=== PATIENT | female | born 1955 | race Caucasian/White ===

== ENCOUNTER 2023-11-06 08:19 | Emergency (ER) | payer MEDICARE, OTHER, SELFPAY ==
[2023-11-06 08:22] VITALS: BP 110/63
--- NOTE | 2023-11-06 09:11 | ED.GENMED ---
History of Present Illness
General
Chief Complaint: Change in Mental Status
Source: patient
Exam Limitations: none
Time Seen by Provider: 11/06/23 08:48
Nursing documentation reviewed up to this point in time: agreed with
Travel History
Have you had any contact with someone who has COVID-19?: No
Do you have any symptoms of coronavirus? Fever > 100 degrees, chills, cough, shortness of breath, sore throat, loss of taste or smell, muscle aches, or headache?: No
History of Present Illness
History of Present Illness:
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 Patient was
seen by her primary care physician 2 days ago and has been started on ciprofloxacin for urinary tract infection, without improvement symptoms. Denies fever or chills. Denies nausea, vomiting, or diarrhea. Denies loss of appetite. Denies
headache. Upon arrival, patient is alert and awake, and is without any complaints.
Past History
Past History
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
Social History
Tobacco: Non-smoker
Personal:
Living: with family
Review of Systems
Review of Systems
Allergies reviewed?: Yes
All Other Systems: ROS reviewed and negative except as documented in HPI and ROS
Constitutional: Denies fever or chills
Respiratory: Reports no symptoms; Denies cough
Cardiac: Reports no symptoms
ABD/GI: Reports no symptoms; Denies nausea, vomiting or diarrhea
: Reports no symptoms; Denies frequency, difficulty voiding or urgency
Musculoskeletal: Reports no symptoms
Skin: Reports no symptoms
Neurological: Reports no symptoms
Phy Exam
Physical Exam
Physical Exam:
Physical Exam
General: no apparent distress, not acutely ill. afebrile
Head: nc/at. eomi
Neck: supple. no meningeal signs.
Heart: s1/s2 regular rate and rhythm, no murmur. equal radial pulses.
Lungs: no acute respiratory distress. clear bilaterally
Abdomen: normal bowel sounds. not tender.
Neuro: alert and oriented x 3. no focal neurological deficits
Skin: no rash
Psychiatric: well kept. interactive and cooperative
Extremities: no edema. no calf tenderness.
Course
Orders/Labs/Results
Orders:
Orders
11/06/23 09:10
0.9% Sodium Chloride 500 ml [Nss] 500 ml IV BOLUS
11/06/23 09:14
Complete Blood Count/With Diff Urgent
Comprehensive Metabolic Panel Urgent
Lactic Acid Q4H
Comment: CANCEL 2nd LACTIC ACID IF 1st LACTIC ACID IS LESS THAN 2
Blood Culture Q30M
KIRTI Source: Blood/Venous
Specimen Description:
11/06/23 09:18
Urinalysis Reflex To Culture Urgent
Date Specimen was Collected: 11/06/23
Time Specimen was Collected: 09:17
11/06/23 11:03
Blood Culture Q30M
KIRTI Source: Blood/Venous
Specimen Description:
Abnormal Lab Results
11/06/23
09:14
WBC 3.8 L 10^3/uL
(4.8-10.8)
Absolute Lymphs (auto) 1.0 L 10^3/uL
(1.2-3.4)
11/06/23 09:14
11/06/23 09:14
Vital Signs
Initial and Last Documented VS:
Initial Vital Signs
Temp Pulse Resp BP Pulse Ox
97.9 F 69 16 110/63 98
11/06/23 08:22 11/06/23 08:22 11/06/23 08:22 11/06/23 08:22 11/06/23 08:22
Last Documented Vital Signs
Temp Pulse Resp BP Pulse Ox
97.9 F 69 16 138/69 100
11/06/23 08:22 11/06/23 08:22 11/06/23 08:22 11/06/23 10:00 11/06/23 10:01
MDM/Problems Addressed
MDM/Problems Addressed:
Patient with an unremarkable workup in ED, including blood work and initial urinalysis. Patient remains afebrile, hemodynamically stable, and nontoxic-appearing.
Urine culture from December 2022 reviewed : E. coli, pansensitive. As such, patient will be discharged home in stable condition, with recommendation to continue ciprofloxacin as already prescribed, along with PCP follow-up next week. Advised to
return to ED with worsening symptoms.
Blood culture pending.
*Critical Care Note
Total Time (30-74mins, 75-104mins- exclusive of procedures): Not Applicable
ED Attending Note
-
Portions of this chart may have been created with voice recognition software.� Occasional wrong word or��sound alike� substitutions may have occurred due to the inherent limitations of voice recognition software.
Discharge Plan
Departure
Patient Disposition: Home (Routine Discharge)
Date of Disposition: 11/06/23
Time of Disposition: 10:33
Patient with high blood pressure during this ER visit?: Yes
Condition: Good
Discharge Problem:
Acute UTI
Instructions: Urinary Tract Infection, Adult (DC)
Prescriptions:
No Action
cephalexin 500 mg capsule
500 mg PO Q12H 7 Days Qty: 14 0RF
Referrals:
Oskar Fernández DO [Family Provider] -
Activity Restrictions/Additional Instructions:
As discussed, please continue to take ciprofloxacin as already prescribed, along with PCP follow-up next week. Please consider return to ED with worsening symptoms.
Interventions
Interventions:
*Risk Screen - Suicide Last Done: 11/06/23 08:22
*General Assessment Last Done: 11/06/23 08:22
*Neglect/Abuse Screening Last Done: 11/06/23 08:22
*Nursing Disposition Last Done: 11/06/23 11:00
ED- Neurological Assessment Last Done: 11/06/23 09:05
ED Swallowing Screen Last Done: 11/06/23 10:15
Discharge Date and Time
Discharge Date/Time: 11/06/23 11:00
[2023-11-06 09:26] VITALS: BP 142/72
[2023-11-06] MEDS: NSS 500 IV (09:28)
[2023-11-06 09:43] LABS: % Basophils 1.3 % (0-2); % Immature Granulocytes 0.3 % (0-0.5); % Lymphocytes 27.3 % (20.5-51.1); % Neutrophils 64.1 % (42.2-75.2); Absolute Basophils 0.1 10^3/uL (0-0.2); Absolute Monocytes 0.2 10^3/uL (0.1-0.6); Absolute Neutrophils 2.4 10^3/uL (1.4-6.5); Hematocrit 39.5 % (37.0-47.0); Hemoglobin 13.8 g/dL (12.0-16.0); Mean Corp Hgb Conc. 34.9 g/dL (33.0-37.0); Mean Corpuscular Hgb 30.9 pg (27.0-31.0); Mean Corpuscular Volume 88.4 fL (81.0-99.0); Mean Platelet Volume 9.5 fL (7.4-10.4); Nucleated Red Blood Cells % 0 %; Platelet Count 164 10^3/uL (130-400); Red Blood Cell Count 4.47 10^6/uL (4.20-5.40); Red Cell Dist. Width 12.5 % (11.5-14.5); White Blood Cell Count 3.8 10^3/uL (4.8-10.8)
[2023-11-06 09:47] LABS: Urine Albumin Negative (Neg - Trace); Urine Bilirubin Negative (Negative); Urine Character Clear (Clear); Urine Color Yellow; Urine Glucose Negative (Negative); Urine Ketone Negative (Negative); Urine Leukocyte Negative (Negative); Urine Nitrite Negative (Negative); Urine Occult Blood Negative (Negative); Urine Urobilinogen Negative (Neg - 1+)
[2023-11-06 09:51] LABS: ALT (SGPT) 17 U/L (0-35); AST (SGOT) 25 U/L (14-36); Albumin 4.8 g/dl (3.5-5.0); Alkaline Phosphatase 106 U/L (38-126); Blood Urea Nitrogen 12 mg/dl (7-17); Calcium 9.5 mg/dl (8.4-10.2); Carbon Dioxide 29 mmol/L (22-30); Chloride 106 mmol/L (98-107); Glucose 95 mg/dl (70-99); Potassium 4.2 mmol/L (3.5-5.1); Sodium 141 mmol/L (135-145); Total Bilirubin 0.8 mg/dl (0.2-1.3); Total Protein 7.6 g/dl (6.3-8.2); eGFR > 60.00
[2023-11-06 10:00] VITALS: BP 138/69
== END 2023-11-06 11:00 | disposition home or self-care (01) ==
LOC: EMR 08:19
PROVIDERS: EMERGENCY PHYSICIAN Emergency Medicine; FAMILY PHYSICIAN Family Medicine Sports Medicine
DX: N39.0 Urinary tract infection, site not specified (principal); R03.0 Elevated blood-pressure reading, without diagnosis of hypertension; G31.9 Degenerative disease of nervous system, unspecified; F02.82 Dementia in other diseases classified elsewhere, unspecified severity, with psychotic disturbance; R44.3 Hallucinations, unspecified
CPT/HCPCS: 99284; 96360; 80053; 81003; 83605; 85025; 87040

== ENCOUNTER 2024-01-30 15:11 | Emergency (ER) | payer MEDICARE, OTHER, SELFPAY ==
[2024-01-30 15:13] VITALS: BP 120/71; BMI 21.2
[2024-01-30 15:29] LABS: % Basophils 1.4 % (0-2); % Immature Granulocytes 0.2 % (0-0.5); % Lymphocytes 25.3 % (20.5-51.1); % Monocytes 6.7 % (1.7-9.3); % Neutrophils 65.4 % (42.2-75.2); Absolute Basophils 0.1 10^3/uL (0-0.2); Absolute Eosinophils 0.1 10^3/uL (0-0.7); Absolute Lymphocytes 1.3 10^3/uL (1.2-3.4); Absolute Monocytes 0.3 10^3/uL (0.1-0.6); Absolute Neutrophils 3.2 10^3/uL (1.4-6.5); Hematocrit 37.5 % (37.0-47.0); Hemoglobin 13.4 g/dL (12.0-16.0); Mean Corp Hgb Conc. 35.7 g/dL (33.0-37.0); Mean Corpuscular Volume 86.8 fL (81.0-99.0); Mean Platelet Volume 9.6 fL (7.4-10.4); Nucleated Red Blood Cells % 0 %; Platelet Count 177 10^3/uL (130-400); Red Blood Cell Count 4.32 10^6/uL (4.20-5.40); Red Cell Dist. Width 12.6 % (11.5-14.5)
[2024-01-30 15:55] LABS: ALT (SGPT) 13 U/L (0-35); AST (SGOT) 19 U/L (14-36); Albumin 4.3 g/dl (3.5-5.0); Alkaline Phosphatase 84 U/L (38-126); Blood Urea Nitrogen 17 mg/dl (7-17); Calcium 9.4 mg/dl (8.4-10.2); Carbon Dioxide 28 mmol/L (22-30); Chloride 105 mmol/L (98-107); Estimated Creatinine Clearance 72 ml/min; Glucose 87 mg/dl (70-99); Lipase 284 U/L (23-300); Potassium 4.2 mmol/L (3.5-5.1); Sodium 138 mmol/L (135-145); Total Bilirubin 0.6 mg/dl (0.2-1.3); Total Protein 6.9 g/dl (6.3-8.2); eGFR > 60.00
--- NOTE | 2024-01-30 17:53 | ED.GENMED ---
Addendum entered and electronically signed by Jeff Wilkins PA-C 02/02/24 07:12:
Urine culture shows greater than 100,000 CFU of gram negative bacilli. On Keflex, sensitivities pending.
Original Note:
History of Present Illness
General
Chief Complaint: Abdominal Symptoms
Time Seen by Provider: 01/30/24 17:52
Travel History
Have you had any contact with someone who has COVID-19?: No
Do you have any symptoms of coronavirus? Fever > 100 degrees, chills, cough, shortness of breath, sore throat, loss of taste or smell, muscle aches, or headache?: No
History of Present Illness
History of Present Illness:
HPI: Most the history obtained from the at bedside. The patient has a history of Soria's disease/dementia. About a month ago, the patient had somewhat of a change in mental status that seem to resolve after she had a very large bowel
movement. She had similar symptoms recently and then had been on Dulcolax then MiraLAX but symptoms this time persisted. The was concerned that maybe there was retained stool that she was leaking around. He also felt that she was having
increasing pain in the abdomen today. Apparently, she has been scared to eat.
EXAM:
GENERAL: Appears in no distress
HEENT: Moist oral mucosa
CARDIOVASCULAR: Regular rate and rhythm
PULMONARY: No respiratory distress, breathing is nonlabored, equal and clear breath sounds
ABDOMEN: Soft and nontender with no peritoneal signs, digital rectal exam�no stool/empty rectal vault
NEUROLOGIC: The patient has evidence of dementia, not oriented to month or place, strength is equal in all extremities
EXTREMITIES: Moves all extremities equally, no tenderness, no edema
PYSCHIATRIC: Very limited historian, poor insight and judgment
TIME OF INITIAL ENCOUNTER: 6 PM
NUMBER AND COMPLEXITY OF PROBLEMS ADDRESSED AT THE ENCOUNTER
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
� Acute Exacerbation and/or Progression of Chronic Illness: This is an acute problem
� Differential Diagnosis includes: Encopresis, constipation, intra-abdominal pathology/obstruction
AMOUNT AND/OR COMPLEXITY OF DATA TO BE REVIEWED AND ANALYZED
� I performed an independent evaluation of and my interpretation is:
EKG:
CT: CT imaging shows no clear evidence for acute abnormality, liquid stool noted in the colon
X-rays:
Laboratory Studies: CBC including white count are normal, chemistries unremarkable
Other:
� Review of other/old records: I reviewed records�the patient was diagnosed with a urinary tract infection 2 months ago; I reviewed old records that showed an E. coli infection that was sensitive to cephalosporins
� Clinical information was obtained by an independent historian: I spoke to the at bedside
� Prescriptions/Medications Considered but not given:
� Further testing considered but not performed:
RISK OF COMPLICATIONS AND/OR MORBIDITY OR MORTALITY OF PATIENT MANAGEMENT
� Social determinants of health affecting care: Lives at home with
� Discussion with other providers:
� Escalation of care including admission/observation vs risk of discharge considered: Blood work is reassuring. She has a empty rectal vault. Will obtain CT imaging as the patient is an extremely limited historian. On
reassessment at about 9 PM, the states that overall she is improved after IV fluids. He was very concerned about the possible of urinary tract with similar presentation of the past. She does have suggestion of urinary tract
infection�Rocephin was given and will give a short course of
Past History
Past History
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
Social History
Tobacco: Non-smoker
Personal:
Living: with family
Phy Exam
Physical Exam
Physical Exam:
See HPI
Course
Orders/Labs/Results
Orders:
Orders
01/30/24 15:21
Complete Blood Count/With Diff Urgent
Comprehensive Metabolic Panel Urgent
Lipase Urgent
01/30/24 17:54
0.9% Sodium Chloride 1000 ml [Nss] 1,000 ml IV BOLUS
01/30/24 18:04
CT Abd/pelvis W Iv Cont Urgent
Comment:
Reason For Exam: abd pain constip then diarrhea poor histor dementi
01/30/24 20:21
Urinalysis Reflex To Culture Urgent
Date Specimen was Collected: 01/30/24
Time Specimen was Collected: 20:20
Urine Microscopic Reflex Cult Urgent
Urine Culture Urgent
KIRTI Source: U
Specimen Description:
Date Specimen was Collected: 01/30/24
Time Specimen was Collected: 20:20
01/30/24 21:09
CefTRIAXone [Rocephin] 1,000 mg IV NOW STA
Abnormal Lab Results
01/30/24
20:21
Urine Ketones 1+ A
(Negative)
Ur Occult Blood Reflex Trace A
(Negative)
Urine Nitrite (Reflex) Positive A
(Negative)
Leukocyte Esterase Rfl 2+ A
(Negative)
Urine WBC (Reflex) 16-20 A /HPF
(0-5)
01/30/24 15:21
01/30/24 15:21
Vital Signs
Initial and Last Documented VS:
Initial Vital Signs
Temp Pulse Resp BP Pulse Ox
98 F 81 16 120/71 99
01/30/24 15:13 01/30/24 15:13 01/30/24 15:13 01/30/24 15:13 01/30/24 15:13
Last Documented Vital Signs
Temp Pulse Resp BP Pulse Ox
97.7 F 53 18 119/61 98
01/30/24 18:03 01/30/24 18:03 01/30/24 18:03 01/30/24 18:03 01/30/24 18:03
*Critical Care Note
Total Time (30-74mins, 75-104mins- exclusive of procedures): Not Applicable
ED Attending Note
-
Portions of this chart may have been created with voice recognition software.� Occasional wrong word or��sound alike� substitutions may have occurred due to the inherent limitations of voice recognition software.
Discharge Plan
Departure
Patient Disposition: Home (Routine Discharge)
Date of Disposition: 01/30/24
Time of Disposition: 21:11
Patient with high blood pressure during this ER visit?: Yes
Discharge Problem:
Diarrhea
Instructions: Diarrhea, Adult ED, Urinary Tract Infection, Adult ED
Prescriptions:
New
cephalexin 500 mg capsule
500 mg PO TID Qty: 21 0RF
No Action
donepezil 10 mg Tablet
10 mg PO DAILY
levothyroxine 125 mcg Tablet
125 mcg PO DAILY
sertraline 25 mg Tablet
25 mg PO DAILY
rosuvastatin 5 mg Tablet
5 mg PO DAILY
memantine [Namenda] 10 mg Tablet
10 mg PO QPM
Referrals:
Oskar Fernández DO [Family Provider] -
Activity Restrictions/Additional Instructions:
Basic blood work is unremarkable. There is some suggestion for urinary tract infection on the urinalysis, urine culture pending. We gave a dose of Rocephin and I am sending a prescription for Keflex to the pharmacy.
Interventions
Interventions:
*Risk Screen - Suicide Last Done: 01/30/24 15:13
*Neglect/Abuse Screening Last Done: 01/30/24 15:13
ED- Fall Risk Assessment Last Done: 01/30/24 15:13
*ED COVID-19 Vaccine History Last Done: 01/30/24 15:13
K[facility]-Sjagot-Iwpmhooogp Assessment Last Done: 01/30/24 18:13
Discharge Date and Time
Print Language: CITIZEN OF [place]
[2024-01-30 18:03] VITALS: BP 119/61; BMI 20.4
[2024-01-30] MEDS: NSS 1000 IV (18:09)
[2024-01-30 20:29] LABS: Urine Albumin Negative (Neg - Trace); Urine Bilirubin Negative (Negative); Urine Character Clear (Clear); Urine Color Yellow; Urine Glucose Negative (Negative); Urine Ketone 1+ (Negative); Urine Leukocyte 2+ (Negative); Urine Nitrite Positive (Negative); Urine Occult Blood Trace (Negative); Urine Specific Gravity 1.015 (<1.030); Urine Urobilinogen Negative (Neg - 1+)
[2024-01-30 20:44] LABS: Urine Red Blood Cell 0-2 /HPF (0-2); Urine White Cell 16-20 /HPF (0-5)
[2024-01-30 20:45] LABS: Urine Squamous Cell 0-2 /LPF (Few)
[2024-01-30] MEDS: ROCEPHIN 1000 MG IV (21:29)
[2024-01-30] MEDS: TYLENOL 1000 MG PO (21:30)
[2024-01-30 21:37] VITALS: BP 116/74
== END 2024-01-30 21:50 | disposition home or self-care (01) ==
LOC: EMR 15:11
PROVIDERS: EMERGENCY PHYSICIAN Emergency Medicine; FAMILY PHYSICIAN Family Medicine Sports Medicine
DX: R19.7 Diarrhea, unspecified (principal); R10.9 Unspecified abdominal pain; R03.0 Elevated blood-pressure reading, without diagnosis of hypertension; F03.90 Unspecified dementia, unspecified severity, without behavioral disturbance, psychotic disturbance, mood disturbance, and anxiety; H43 Disorders of vitreous body; Z87.440 Personal history of urinary (tract) infections
CPT/HCPCS: 99285; 96361; 96374; 74177; 80053; 81003; 81015; 83690; 85025; 87077; 87086; 87186; Q9967

== ENCOUNTER 2025-06-22 16:36 | Emergency (ER) | payer MEDICARE, OTHER, SELFPAY ==
[2025-06-22 16:39] VITALS: BP 144/81
[2025-06-22] MEDS: NSS 1000 IV (17:59)
[2025-06-22 18:13] LABS: Hematocrit 36.0 % (37.0-47.0); Hemoglobin 12.3 g/dL (12.0-16.0); Mean Corp Hgb Conc. 34.2 g/dL (33.0-37.0); Mean Corpuscular Volume 89.1 fL (81.0-99.0); Nucleated Red Blood Cells % 0 %; Platelet Count 143 10^3/uL (130-400); Red Cell Dist. Width 12.7 % (11.5-14.5)
[2025-06-22 18:21] LABS: ALT (SGPT) 11 U/L (0-35); AST (SGOT) 16 U/L (14-36); Albumin 4.2 g/dl (3.5-5.0); Alkaline Phosphatase 67 U/L (38-126); Blood Urea Nitrogen 15 mg/dl (7-17); Calcium 8.7 mg/dl (8.4-10.2); Carbon Dioxide 25 mmol/L (22-30); Chloride 104 mmol/L (98-107); Glucose 114 mg/dl (70-99); Potassium 4.3 mmol/L (3.5-5.1); Sodium 135 mmol/L (135-145); Total Protein 6.9 g/dl (6.3-8.2); eGFR > 60.00
[2025-06-22 18:26] LABS: COVID-19 Antigen Positive (Negative)
[2025-06-22 19:34] LABS: Urine Character Slightly Cloudy (Clear)
--- NOTE | 2025-06-22 19:55 | ED.GENMED ---
Addendum entered and electronically signed by Marita Durham PA-C 06/26/25 12:39:
urine culture e coli, on cefdinir, sensitive no treatment change
Addendum entered and electronically signed by Codi Stratton PA-C 06/24/25 14:59:
06/24/2025: Urine culture preliminary result with greater than 100,000 CFU/mL gram-negative bacilli. Patient was discharged on cefdinir. Sensitivities pending.
Original Note:
History of Present Illness
General
Chief Complaint: Urinary Symptoms
Source: patient and spouse
Exam Limitations: dementia
Time Seen by Provider: 06/22/25 17:11
Nursing documentation reviewed up to this point in time: agreed with
History of Present Illness
History of Present Illness:
Patient is a 70-year-old female with history dementia who presents emergency department alongside with concerns of significant change in mental status. Patient's states that on Thursday evening her sister noticed that the patient had
very malodorous and cloudy urine. Yesterday she seemed to be acutely altered with significant change in her mental status from her baseline. He states that she has appeared much more fatigued and generally weak. He denies any known fever. Patient
has not had any vomiting or been complaining of any abdominal pain.
They were seen by her primary care provider today for evaluation where it was found that she had a UTI however referred to the emergency department given significant change in mental status.
Patient is not on any oral anticoagulation.
Past History
Past History
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
Social History
Tobacco: Non-smoker
Personal:
Living: with family
Review of Systems
Review of Systems
Allergies reviewed?: Yes
All Other Systems: ROS reviewed and negative except as documented in HPI and ROS
Phy Exam
Physical Exam
Physical Exam:
Vitals: Mildly hypertensive, otherwise vital signs stable. Afebrile
General: Patient is tearful. Nontoxic
Skin: Warm and dry, no rashes or lesions
Head: Normocephalic, atraumatic
Eyes: Sclera nonicteric.
Throat: Protecting airway
Neck: Normal ROM, no cervical spine tenderness, no meningismus
Cardiac: Regular rate and rhythm, no murmurs.
Pulm: Normal respiratory effort. Lungs clear bilaterally
Abdomen: Abdomen soft and nontender
Extremities: No evidence of cyanosis or edema
Neuro: AAOx1. Moving all extremities. No focal neurologic deficits
Psychiatric: Normal affect.
Course
Orders/Labs/Results
Orders:
Orders
06/22/25 17:38
0.9% Sodium Chloride 1000 ml [Nss] 1,000 ml IV BOLUS
06/22/25 17:41
CT Head W/o Iv Contrast Urgent
Comment:
Reason For Exam: AMS
06/22/25 17:48
COVID-19 Antigen Urgent
Source: Nasal Swab
Complete Blood Count/With Diff Urgent
Comprehensive Metabolic Panel Urgent
Urinalysis Reflex To Culture Urgent
Date Specimen was Collected: 06/22/25
Time Specimen was Collected: 17:47
Urine Microscopic Reflex Cult Urgent
Influenza A+B Rapid Molecular Urgent
KIRTI Source: Nasal Swab
Specimen Description:
Urine Culture Urgent
KIRTI Source: U
Specimen Description:
Date Specimen was Collected: 06/22/25
Time Specimen was Collected: 17:47
06/22/25 20:20
CefTRIAXone [Rocephin] 1,000 mg IV NOW STA
06/22/25 20:26
Sterile Water [Sterile Water For Injection] 10 ml .ROUTE .[facility]
06/22/25 20:48
EKG [Electrocardiogram (*1)] Routine
Reason for Study: QTc Monitoring
06/22/25 20:52
Code Status As Directed
Resuscitation Status: Full Code
PRN Pain Medication Management As Directed
May give lesser potent ordered pain med per pt: Yes
preference::
Protocol:: Medication orders for pain may be administered in a
manner that supports deferring to patient preference
when the pt is:
- Requesting an ordered lesser potent pain medication.
Least to most potent pain medications are defined
as: acetaminophen < NSAID < tramadol < opioids
(morphine, oxycodone, hydromorphone).
- Requesting a lesser dose of the same medication IF
ORDERED.
- Requesting a less intrusive route of administration
if both routes are prescribed by the provider (PO <
IV).
06/22/25 20:54
Oseltamivir Phosphate [Tamiflu] 75 mg PO NOW STA
06/22/25 20:58
Quetiapine Fumarate [Seroquel] 25 mg PO NOW STA
06/22/25 22:08
Haloperidol [Haldol] 1 mg PO NOW STA
06/22/25 22:41
Discharge Patient As Directed
06/22/25 23:00
Flush (0.9% Sodium Chloride) [Flush (Nss)] See Dose Instructions IV PER PROTOCOL
Abnormal Lab Results
06/22/25
17:48
WBC 4.6 L 10^3/uL
(4.8-10.8)
RBC 4.04 L 10^6/uL
(4.20-5.40)
Hct 36.0 L %
(37.0-47.0)
Absolute Lymphs (auto) 1.0 L 10^3/uL
(1.2-3.4)
Monocytes % 9.8 H %
(1.7-9.3)
Glucose 114 H mg/dl
(70-99)
Ur Occult Blood Reflex 4+ A
(Negative)
Urine Nitrite (Reflex) Positive A
(Negative)
Leukocyte Esterase Rfl 2+ A
(Negative)
Urine RBC 3-6 A /HPF
(0-2)
Urine WBC (Reflex) 21-25 A /HPF
(0-5)
Urine Bacteria (Reflex) Many A
(Negative)
SARS-CoV-2 Antigen Positive A
(Negative)
06/22/25 17:48
06/22/25 17:48
Vital Signs
Initial and Last Documented VS:
Initial Vital Signs
Temp Pulse Resp BP Pulse Ox
99.2 F 91 16 144/81 98
06/22/25 16:39 06/22/25 16:39 06/22/25 16:39 06/22/25 16:39 06/22/25 16:39
Last Documented Vital Signs
Temp Pulse Resp BP Pulse Ox
98.7 F 91 16 144/81 98
06/22/25 20:39 06/22/25 16:39 06/22/25 16:39 06/22/25 16:39 06/22/25 20:05
MDM/Problems Addressed
Differential Diagnosis Includes:
Not limited to: Acute dehydration, viral illness, UTI, progression of dementia, intracerebral hemorrhage, etc.
MDM/Problems Addressed:
70-year-old female with acute alteration of mental status as well as generalized weakness. No recent fever or vomiting. No recent head trauma. Vitals and physical exam as above. Patient quite tearful and somewhat agitated on initial evaluation. No
focal neurologic deficits . Her abdomen is benign.
Differential includes UTI, viral illness, dehydration. Possible progression of dementia, less likely brain bleed, or other central cause.
ED plan: Will check basic labs, viral studies, UA. Will check CT head to r/o acute intracranial abnormality.
Update: labs without clinically significant abnormalities. No leukocytosis. Chemistry unremarkable. Urinalysis does appear infected. Patient was also found to be positive for both Covid and influenza B.
There is no evidence of sepsis. She is not hypoxic or in any respiratory distress.
Patients has significant safety concerns given her acute alteration of mental status as well as generalized weakness.
Feel presenting symptoms, including change of mental status and weakness secondary to UTI and viral illnesses. Feel admission for IV antibiotics, further monitoring is warranted. IV Rocephin given in ED. Patient accepted to hospitalist service in
stable condition for further care.
Chronic conditions affecting care:
Dementia
Acute Exacerbation and/or Progression of Chronic Illness:
Acute alteration in mental status secondary to UTI, viral illnesses including COVID & influenza
*Radiology
Radiology exam reviewed: radiology read reviewed
*Pulse Oximetry
SaO2: 98
Oxygen Mode of Delivery: Room air
Patient hypoxic: no
*EKG
Interpreted by ED Provider?: NA
*[employer] Interpretation
Rate: [employer] Tutor- N/A
*Critical Care Note
Total Time (30-74mins, 75-104mins- exclusive of procedures): Not Applicable
Patient Management
Discussion with other providers: Hospitalist
ED Attending Note
-
Portions of this chart may have been created with voice recognition software.� Occasional wrong word or��sound alike� substitutions may have occurred due to the inherent limitations of voice recognition software.
Discharge Plan
Departure
Patient Disposition: Admit
Date of Disposition: 06/22/25
Time of Disposition: 20:20
Presentation/result/management discussed w/ accepting MD/DO: Hospitalist
Patient with high blood pressure during this ER visit?: Yes
Discharge Problem:
Altered mental state, Acute UTI, COVID, Influenza B
Prescriptions:
New
oseltamivir [Tamiflu] 75 mg capsule
75 mg PO BID 5 Days Qty: 9 0RF
cefdinir 300 mg capsule
300 mg PO BID Qty: 12 0RF
Rx Instructions:
Take first dose evening of 06/23
Continued
donepezil 10 mg Tablet
10 mg PO DAILY
sertraline 25 mg Tablet
25 mg PO DAILY
rosuvastatin 5 mg Tablet
5 mg PO DAILY
memantine 10 mg Tablet
10 mg PO BID
therapeutic multivitamin Tablet
1 tab PO DAILY
docusate sodium [Colace] 100 mg Capsule
100 mg PO DAILY
Visbiome 112.5 billion cell Capsule
1 cap PO DAILY
levothyroxine [Synthroid] 75 mcg Tablet
75 mcg PO DAILY
Referrals:
Oskar Fernández DO [Family Provider, Family Practice] - in less than 1 week
Interventions
Interventions:
*Risk Screen - Suicide Last Done: 06/22/25 16:39
*General Assessment Last Done: 06/22/25 19:51
*Neglect/Abuse Screening Last Done: 06/22/25 16:39
*ED- Fall Risk Assessment Last Done: 06/22/25 19:50
*Nursing Disposition Last Done: 06/22/25 23:00
ED-Female Genitourinary Assessment Last Done: 06/22/25 19:51
Discharge Date and Time
Discharge Date/Time: 06/22/25 23:01
Print Language: SWEDISH
[2025-06-22] MEDS: ROCEPHIN 1000 MG IV (20:28)
--- NOTE | 2025-06-22 20:29 | HPS.HSE ---
Addendum entered and electronically signed by Loli Goodrich MD 06/22/25 22:47:
patient became increasingly agitated, wanted to go home. decided to take her home. She is not septic or hypoxic. I called , let him know that I prescribed Tamiflu and Cefdinir. He will call her doctors at [facility] tomorrow to discuss
script for antipsychotics at home.
Original Note:
Family Physician
-
Family Physician: Oskar Fernández
Chief Complaint
-
weakness and confusion
History of Present Illness
Ms. Sanaz Baig is a 70 yo woman with hx Soria's disease/dementia brought to the ER with increased fatigue and weakness.
History obtained from at bedside. Patient has been increasingly confused and agitated past 2 days. She is restless in bed now asking to go home. She developed mild congestion and cough starting yesterday. No fevers. Patient too confused
to answer full ROS. She denies pain.
Medical History
Past Medical History
Past Medical History: Reports Other (Soria's disease/dementia)
Past Surgical History: Reports Other
Social History
Tobacco: Non-smoker
Alcohol: None
Family History
Family History: Not pertinent
Allergies / Home Medications
Allergies reflects when Allergies were last updated in [facility] [facility].
Home Medications with original date entered in [facility] [facility]
Allergy/Medication List:
Allergies
Allergy/AdvReac Type Severity Reaction Status Date / Time
NKA - No Known Allergies Allergy Unknown Uncoded 01/30/24 15:13
Home Medications
cephalexin 500 mg capsule 500 mg PO TID #21 caps 01/30/24
donepezil 10 mg tablet 10 mg PO DAILY 01/30/24
levothyroxine 125 mcg tablet 125 mcg PO DAILY 01/30/24
memantine 10 mg tablet 10 mg PO QPM 01/30/24
rosuvastatin 5 mg tablet 5 mg PO DAILY 01/30/24
sertraline 25 mg tablet 25 mg PO DAILY 01/30/24
*awaiting med rec
Review of Systems
-
Unable to obtain full review of systems at this time due to: Dementia
History Source: Patient
Physical Exam
Vital Signs
Vital Signs
Temp Pulse Resp BP Pulse Ox
99.2 F 91 16 144/81 98
06/22/25 16:39 06/22/25 16:39 06/22/25 16:39 06/22/25 16:39 06/22/25 20:05
Physical Exam
General: Other (frail appearing, agitated)
HEENT: PERRLA
Respiratory: No Wheezes
Cardiac: S1/S2 and Regular Rhythm
GI: Soft and Non Tender
Musculoskeletal: No Edema
Skin: Warm and Dry; No Rash
Neuro: Awake and Alert; No Oriented
Psych: Confused and Apparent Dementia
Laboratory Results
-
06/22/25 17:48
06/22/25 17:48
Laboratory Results
Total Bilirubin 0.7 mg/dl (0.2-1.3) 06/22/25 17:48
AST 16 U/L (14-36) 06/22/25 17:48
ALT 11 U/L (0-35) 06/22/25 17:48
Alkaline Phosphatase 67 U/L (38-126) 06/22/25 17:48
Data Reviewed
-
Diagnostic Radiology: Report Reviewed by me
Lab Data: Labs Reviewed by me
Impression/Plan
-
Ms. Sanaz Baig is a 70 yo woman with hx Soria's disease/dementia brought to the ER with increased fatigue and weakness.
Triage VS: T 99.2, P 91, RR 16, BP 144/81, SpO2 98%
LABS: WBC 4.6, Hg 12.3, PLT 143, Na 135, K+ 4.3, CO2 25, BUN 15, Cr 0.6, glucose 114, liver enzymes WNL
Covid positive
Influenza B positive
MAR: IV Ceftriaxone
TME 2/2 Covid, Influenza and UTI
-patient restless and agitated, will give Seroquel now
-PT
-CM
-see plans below
Influenza +
-within 48 hours symptoms onset
-start Tamiflu
Covid +
-patient is not hypoxic, no need for steroids
-will hold off on Paxlovid for now given side effects that may worsen patient's confusion
UTI
-IV Ceftriaxone
-follow up culture
Dementia
Hx Soria's Disease/ posterior circulation dementia
-[facility] [employer] Donepezil
Hypothyroidism - [facility] [employer] Synthroid
HLD - [facility] [employer] Statin
Depression - [facility] [employer]UR[employer] Zoloft
DVT PPx Lovenox subQ
FULL CODE - discussed with at admission
[2025-06-22 20:51] LABS: Urine Squamous Cell >30 /LPF (Few)
[2025-06-22 20:52] LABS: Urine White Cell 21-25 /HPF (0-5)
[2025-06-22] MEDS: TAMIFLU 75 MG PO (21:09)
[2025-06-22] MEDS: SEROQUEL 25 MG PO (21:09)
--- NOTE | 2025-06-22 22:41 | W.DS.TRANS ---
DC Summary - Film Editor
-
Discharge Instructions:
Discharge Diagnosis/Procedures + Covid, Influenza B and Urinary Tract Infection
Diet Regular
Activity As tolerated
Driving Restrictions No driving
Bathing Restrictions None
Instructions:
Stand-Alone Forms:
Changes to Home Medications: Yes
Discharge Medications:
DC Medications w/original date entered in [employer]
donepezil 10 mg tablet 10 mg PO DAILY 01/30/24
memantine 10 mg tablet 10 mg PO BID 01/30/24
rosuvastatin 5 mg tablet 5 mg PO DAILY 01/30/24
sertraline 25 mg tablet 25 mg PO DAILY 01/30/24
Lactobac no.2-Bifidobac no.1-S. thermo 112.5 billion cell capsule (Visbiome) 1 cap PO DAILY 06/22/25
cefdinir 300 mg capsule 300 mg PO BID #12 caps 06/22/25
docusate sodium 100 mg capsule (Colace) 100 mg PO DAILY 06/22/25
levothyroxine 75 mcg tablet (Synthroid) 75 mcg PO DAILY 06/22/25
oseltamivir 75 mg capsule (Tamiflu) 75 mg PO BID 5 days #9 caps 06/22/25
therapeutic multivitamin 1 tab PO DAILY 06/22/25
Home Medication Changes
addition of Tamiflu and Cefdinir
Pending Results: Yes
Additional Pending Results:
urine culture
== END 2025-06-22 23:01 | disposition left against medical advice (07) ==
LOC: EMR 16:36
PROVIDERS: Physician Assistant; EMERGENCY PHYSICIAN Emergency Medicine; FAMILY PHYSICIAN Family Medicine Sports Medicine
DX: N39.0 Urinary tract infection, site not specified (principal); B96.89 Other specified bacterial agents as the cause of diseases classified elsewhere; U07.1 COVID-19; J10.1 Influenza due to other identified influenza virus with other respiratory manifestations; F03.90 Unspecified dementia, unspecified severity, without behavioral disturbance, psychotic disturbance, mood disturbance, and anxiety; E03.9 Hypothyroidism, unspecified; E78.5 Hyperlipidemia, unspecified; F32.A Depression, unspecified; Z86.718 Personal history of other venous thrombosis and embolism
CPT/HCPCS: 99284; 96374; 96361; 70450; 80053; 81003; 81015; 85025; 87077; 87086; 87186; 87502; 87811; 93005